=== PATIENT | female | born 1955 | race Caucasian/White ===

== ENCOUNTER 2022-05-14 15:00 | Outpatient (RCR) | payer MEDICARE, OTHER, SELFPAY | END 2022-05-14 15:05 | disposition home or self-care (01) | LOC: PT 15:00 | PROVIDERS: PCP Orthopaedic Surgery; Visit Provider Orthopaedic Surgery | DX: M54.50 Low back pain, unspecified (principal) | CPT/HCPCS: 97010; 97014; 97035; 97110; 97163; 97530; G0283 ==

== ENCOUNTER → 2022-05-29 12:49 | Outpatient (POV) | payer MEDICARE, OTHER, SELFPAY ==
[2022-05-29 13:07] VITALS: BP 140/83; PULSE 82; RESP 18; O2SAT 98; BMI 42.5
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
== END ==
PROVIDERS: Visit Provider Nurse Practitioner Family
DX: M51.36 Other intervertebral disc degeneration, lumbar region (principal); M47.816 Spondylosis without myelopathy or radiculopathy, lumbar region; Z98.1 Arthrodesis status
CPT/HCPCS: 99202; G0463

== ENCOUNTER 2022-06-10 13:28 | Day surgery (SDC) | payer MEDICARE, OTHER, SELFPAY ==
[2022-06-10 13:50] VITALS: BP 120/62; PULSE 73; RESP 18; TEMP 36.4; O2SAT 97; BMI 45.3
[2022-06-10 13:57] VITALS: BP 150/85; PULSE 81; RESP 18; O2SAT 97
[2022-06-10 13:59] VITALS: BP 150/85; PULSE 81; RESP 18; O2SAT 98
[2022-06-10 14:02] VITALS: BP 136/73; PULSE 66; RESP 18; O2SAT 97
--- NOTE | 2022-06-10 14:10 | EXP.PAIN.PRO ---
Procedure Date: 06/10/22 Time: 13:50 Anesthesiologist:: Deion Quinn CRNA Complications:: None Pre-procedure Diagnosis:: Degenerative disc disease lumbar spine multilevels. Lumbar radiculopathy. Lumbar postlaminectomy syndrome. Lumbar spondylosis. Multilevel lumbar facet arthropathy. Post-procedure Diagnosis:: Same. Indications for Procedure:: This patient is a pleasant 67-year-old female that presents our clinic today for bilateral L4-5, L5-S1 medial branch block/facet blocks. However, discussing with the patient regarding her pain pattern she only has pain on the right lumbar area. No pain on the left. She states her pain goes up her spine into the thoracic area on the right side. However, pain begins in the lumbar area. We will proceed with L3-4, L4-5 and L5-S1 medial range blocks/facet block due to the high lumbar right-sided pain. Procedure Details:: Details of the procedure were explained to the patient. The patient taken to procedure room placed in the prone position. The over the lumbar spine was cleansed using chlorhexidine cleansing solution. Using fluoroscopy guidance a 6 inch 22-gauge needle was used to access the right L3-4, L4-5 and L5-S1 facet joint. 1 cc of 1% lidocaine +10 mg of Depo-Medrol was injected at each level. Patient tolerated procedure without difficulty. There are no complications. Plan and Disposition:: I gave the patient's strict instructions regarding the 60 to 90-minute window of local anesthesia in the lumbar spine. I instructed the patient to pay close attention to how her pain is over the next 60 to 90 minutes. Also described the use of steroid in the same injection. This could give her some extended relief. However, at this time we just do not know. Patient voices understanding. She will follow-up in the clinic.
== END 2022-06-10 14:02 | disposition home or self-care (01) ==
LOC: SC.PAINP 13:29
PROVIDERS: PCP Family Medicine; Visit Provider Nurse Anesthetist, Certified Registered
DX: M51.16 Intervertebral disc disorders with radiculopathy, lumbar region (principal); M96.1 Postlaminectomy syndrome, not elsewhere classified; M47.896 Other spondylosis, lumbar region
CPT/HCPCS: 64493; 64494; 64495; J1040

== ENCOUNTER → 2022-06-17 10:07 | Outpatient (POV) | payer MEDICARE, OTHER, SELFPAY ==
[2022-06-17 10:50] VITALS: BP 166/83; PULSE 75; RESP 20; TEMP 36.2; O2SAT 96; BMI 38.7
--- NOTE | 2022-06-17 11:09 | A.OFFVIS_ITS ---
[facility] Pain Management SOAP Note Subjective:: This patient is a pleasant 67-year-old female that comes our clinic today for follow-up visit regarding chronic right thoracolumbar pain she describes as constant, dull, sharp, stabbing at times. Patient is status post lumbar fusion several years ago. Patient was given right side L3-4, L4-5 and L5-S1 medial branch block 1 week ago. She reports no relief. Patient describes the pain located at the thoracolumbar junction. Pain is only on the right. Patient does wrap around to the right side to some degree at times. I reviewed patient's thoracic MRI. Patient does have T11-12 disc bulge. Also facet arthropathy at the same level. I discussed thoracic epidural steroid injection of the T11-12 area. She wishes to proceed. Objective:: Patient is awake alert [place] x3. In no acute distress. Flexion-extension cervical lumbar spine normal. Deep tendon reflexes upper lower extremities normal. Motor strength upper and lower extremities normal. There is no gross sensory deficit. Gait is normal. Assessment:: Degenerative disc disease lumbar spine. Lumbar postlaminectomy syndrome. Disc bulge T11-12. Thoracic back pain. Thoracic radicular symptoms on the right. Thoracic facet arthropathy. Plan:: We will plan T11-12 epidural steroid injection. I discussed in detail with the patient regarding this injection. Answered her questions. She wishes to proceed. [facility] Disclaimer: The information contained in this section may have been updated after the patient was seen, as this information can be updated by other users. Medical History Anemia Depression HTN (hypertension) Hypothyroidism Surgical History H/O: hysterectomy Hx of total knee arthroplasty Previous back surgery Family History Other Cancer Diabetes Heart disease Hypertension Osteoporosis Rheumatoid arthritis Stroke Social History Smoking Status: Never smoker alcohol intake: current substance use type: denies use current occupational status: retired Travel in the last 8 weeks: None household members: family housing: house
== END ==
PROVIDERS: PCP Family Medicine; Visit Provider Nurse Anesthetist, Certified Registered
DX: M51.36 Other intervertebral disc degeneration, lumbar region (principal); M96.1 Postlaminectomy syndrome, not elsewhere classified; M51.14 Intervertebral disc disorders with radiculopathy, thoracic region
CPT/HCPCS: 99212; G0463

== ENCOUNTER 2022-06-24 09:25 | Day surgery (SDC) | payer MEDICARE, OTHER, SELFPAY ==
[2022-06-24 09:58] VITALS: BP 106/55; PULSE 53; RESP 18; TEMP 36.4; O2SAT 97; BMI 38.7
[2022-06-24 10:20] VITALS: BP 108/55; PULSE 60; RESP 18; O2SAT 97
[2022-06-24 10:21] VITALS: BP 108/55; PULSE 60; RESP 18; O2SAT 97
[2022-06-24 10:23] VITALS: BP 109/49; PULSE 54; RESP 18; O2SAT 97
--- NOTE | 2022-06-24 10:24 | EXP.PAIN.PRO ---
Procedure Date: 06/24/22 Time: 10:15 Anesthesiologist:: Deion Quinn CRNA Complications:: None Pre-procedure Diagnosis:: Degenerative disc thoracic spine. Disc bulge T11-12. Thoracic radiculopathy. Post-procedure Diagnosis:: Same. Indications for Procedure:: Very pleasant 67-year-old female that comes our clinic today for an initial thoracic T11-12 epidural steroid injection. Patient complains of low thoracic back pain as well as some degree of thoracic radiculopathy. She rates her pain 8/10. Procedure Details:: Procedure:Thoracic epidural steroid injection under fluoroscopy Informed consent was obtained and the risks and benefits of the procedure were explained to the patient. The patient was taken to the procedure room and noninvasive monitors placed, including noninvasive blood pressure cuff and pulse oximeter. The back was viewed using C-Arm fluoroscopy and prepped using Betadine as a cleansing solution and the T11-12 to interspace was palpated. Skin and subcutaneous tissues were anesthetized using lidocaine 1.5% and a 25-gauge needle. After this, an 18-gauge Touhy epidural needle was placed into the T11-12 interspace and advanced using fluoroscopic guidance and loss of resistance to air until the epidural space was encountered. After confirmation of needle placement in the epidural space, with dye, a solution containing lidocaine 1.5%, 4 mL and Depo-Medrol 80 mg were incrementally injected into the thoracic epidural space. The patient tolerated the procedure well with no complications. The patient was observed in the Pain Clinic and then discharged home neurologically intact. Plan and Disposition:: Patient was discharged without incident.
== END 2022-06-24 10:23 | disposition home or self-care (01) ==
PROVIDERS: PCP Family Medicine; Visit Provider Nurse Anesthetist, Certified Registered
DX: M51.14 Intervertebral disc disorders with radiculopathy, thoracic region (principal)
CPT/HCPCS: 62321; J1040

== ENCOUNTER 2022-07-18 15:35 | Emergency (ER) | payer MEDICARE, OTHER, SELFPAY ==
[2022-07-18 16:10] VITALS: BP 158/94; PULSE 94; RESP 16; TEMP 37.3; O2SAT 96; BMI 38.7
--- NOTE | 2022-07-18 16:28 | EXP.UTC ---
Discharge Plan Disposition Patient Disposition: Home, Self-Care Condition: Good Prescriptions Prescriptions: New prednisone [prednisone] 20 mg tablet 20 mg PO BID 5 Days Qty: 10 0RF azithromycin [Zithromax Z-Adal] 250 mg tablet See Rx Instructions .ROUTE .COMPLEX Qty: 6 0RF Rx Instructions: For 250 mg dose pack: take 500 mg today (day 1), then 250 mg for 4 days (days 2-5) benzonatate 200 mg capsule 200 mg PO TID PRN (Reason: cough) Qty: 30 0RF No Action lisinopril 20 mg tablet 20 mg PO DAILY 30 Days Qty: 0 levothyroxine 125 mcg capsule 125 mcg PO DAILY gabapentin 300 mg capsule 300 mg PO BID tizanidine 6 mg capsule 6 mg PO QHS PRN (Reason: MUSCLES) Referrals Follow up/Referrals: Justina Dupree MD [Primary Care Provider] - See instructions Clinical Impressions Clinical Impression: Sinusitis Instructions Patient Instructions: DI for Sinusitis Discharge ED Provider: Daisy Mary [facility] HPI General Stated complaint: Cough congestion Mode of Arrival: Ambulatory Limitations: No Limitations Time Seen by Provider: 07/18/22 16:29 Description of Symptoms (Recalled from Triage Doc. by RN): pt comes in with c/o cough and sore throat. since thursday HE Symptoms (Recalled from RN notes): Yes Resp Symptoms (Recalled from RN notes): Yes Skin Symptoms (Recalled from RN notes): No MS Symptoms (Recalled from RN notes): No Functional Status (Recalled from RN notes): n/a History of Present Illness Provider Complaint: Cough, congestion, sinus drainage X 5 days. No fever. Cough is productive. Onset (ago): day(s) (5) Location: chest Relieving factors: none Exacerbating factors: none Associated symptoms: cough Treatments prior to arrival: none Related Data Home Medications Medication Instructions Recorded Confirmed gabapentin 300 mg capsule 300 mg PO BID Pain 06/29/18 06/24/22 levothyroxine 125 mcg capsule 125 mcg PO DAILY THYROID 06/29/18 06/24/22 lisinopril 20 mg tablet 20 mg PO DAILY BLOOD PRESSURE 30 06/29/18 06/24/22 days #0 tabs tizanidine 6 mg capsule 6 mg PO QHS PRN MUSCLES 06/29/18 06/24/22 Previous Rx's Medication Instructions Recorded azithromycin 250 mg tablet See Rx Instructions PO .COMPLEX #6 07/18/22 (Zithromax Z-Adal) tabs benzonatate 200 mg capsule 200 mg PO TID PRN cough #30 caps 07/18/22 prednisone 20 mg tablet 20 mg PO BID 5 days #10 tabs 07/18/22 Allergies Allergy/AdvReac Type Severity Reaction Status Date / Time IRON Allergy Unknown NA-NAUSEA/V Uncoded 06/29/18 15:44 OMITING Worker's Comp Is this a Worker's Comp case?: No PFSH PFS Disclaimer: The information contained in this section may have been updated after the patient was seen, as this information can be updated by other users. Medical History (Updated 07/18/22 @ 16:35 by MADISON Bustamante) Anemia Depression HTN (hypertension) Hypothyroidism Surgical History H/O: hysterectomy Hx of total knee arthroplasty Previous back surgery Family History Rheumatoid arthritis Diabetes Osteoporosis Heart disease Cancer Hypertension Stroke Social History Smoking Status: Never smoker alcohol intake: current substance use type: denies use current occupational status: other Travel in the last 8 weeks: None household members: family housing: house ROS Obtained: Yes All systems reviewed & no additional complaints except as documented Constitutional Constitutional: Reports chills, Reports headache(s) and Reports malaise ENT Ears, Nose, Mouth, and Throat: Reports headache(s) Respiratory Respiratory: Reports cough Neurologic Neurologic: Reports headache(s) Physical Exam General General appearance: alert and in no apparent distress Head Head exam
[2022-07-18 16:41] VITALS: BP 158/94; PULSE 94; RESP 16; TEMP 37.3
== END 2022-07-18 16:41 | disposition home or self-care (01) ==
LOC: UTC 15:49 → ER 16:13 → UTC 16:13
PROVIDERS: Emergency Provider Physician Assistant; PCP Family Medicine
DX: J01.90 Acute sinusitis, unspecified (principal); I10 Essential (primary) hypertension; E03.9 Hypothyroidism, unspecified
CPT/HCPCS: 99212; 99214; G0463

== ENCOUNTER 2022-10-14 16:00 | Outpatient (RCR) | payer MEDICARE, OTHER, SELFPAY | END 2022-10-14 16:05 | disposition home or self-care (01) | LOC: PT 16:00 | PROVIDERS: PCP Family Medicine; Visit Provider Internal Medicine Cardiovascular Disease | DX: M50.30 Other cervical disc degeneration, unspecified cervical region (principal) | CPT/HCPCS: 97010; 97014; 97035; 97110; 97140; 97163; 97164; G0283 ==

== ENCOUNTER 2023-04-24 11:00 | Outpatient (RCR) | payer MEDICARE, OTHER, SELFPAY | END 2023-04-24 12:10 | disposition home or self-care (01) | LOC: OT 11:00 | PROVIDERS: PCP Family Medicine; Visit Provider Orthopaedic Surgery Sports Medicine | DX: M75.51 Bursitis of right shoulder (principal); M75.21 Bicipital tendinitis, right shoulder; S46.011A Strain of muscle(s) and tendon(s) of the rotator cuff of right shoulder, initial encounter; S43.431A Superior glenoid labrum lesion of right shoulder, initial encounter | CPT/HCPCS: 97010; 97014; 97035; 97110; 97140; 97164; 97165; 97530; 97535; G0283 ==

== ENCOUNTER 2024-03-24 15:00 | Outpatient (RCR) | payer MEDICARE, SELFPAY | END 2024-03-24 23:59 | disposition home or self-care (01) | LOC: OT 15:00 | PROVIDERS: Visit Provider Orthopaedic Surgery | DX: M25.511 Pain in right shoulder (principal); Z96.611 Presence of right artificial shoulder joint | CPT/HCPCS: 97014; 97035; 97110; 97140; 97164; 97165; 97168; 97530; G0283 ==

== ENCOUNTER 2024-03-29 14:54 | Outpatient (RCR) | payer MEDICARE, SELFPAY | END 2024-03-29 23:59 | disposition home or self-care (01) | LOC: PT 14:54 | PROVIDERS: Visit Provider Orthopaedic Surgery | DX: M41.9 Scoliosis, unspecified (principal); M54.50 Low back pain, unspecified | CPT/HCPCS: 97163; 97530 ==

== ENCOUNTER 2024-04-28 15:00 | Outpatient (RCR) | payer MEDICARE, SELFPAY | END 2024-04-28 23:59 | disposition home or self-care (01) | LOC: OT 15:00 | PROVIDERS: Visit Provider Orthopaedic Surgery | DX: Z96.611 Presence of right artificial shoulder joint (principal) | CPT/HCPCS: 97014; 97110; 97140; 97530; G0283 ==

== ENCOUNTER 2024-04-29 15:00 | Outpatient (RCR) | payer MEDICARE, SELFPAY | END 2024-04-29 23:59 | disposition home or self-care (01) | LOC: PT 15:00 | PROVIDERS: Visit Provider Orthopaedic Surgery | DX: M41.9 Scoliosis, unspecified (principal); M54.50 Low back pain, unspecified | CPT/HCPCS: 97010; 97110; 97140; 97164; 97530 ==

== ENCOUNTER 2024-05-26 14:00 | Outpatient (RCR) | payer MEDICARE, SELFPAY | END 2024-05-26 23:59 | disposition home or self-care (01) | LOC: OT 14:00 | PROVIDERS: Visit Provider Orthopaedic Surgery | DX: Z96.611 Presence of right artificial shoulder joint (principal) | CPT/HCPCS: 97014; 97110; 97140; 97168; 97530; G0283 ==

== ENCOUNTER 2024-05-26 15:00 | Outpatient (RCR) | payer MEDICARE, SELFPAY | END 2024-05-26 23:59 | disposition home or self-care (01) | LOC: PT 15:00 | PROVIDERS: Visit Provider Orthopaedic Surgery | DX: M41.9 Scoliosis, unspecified (principal); M54.50 Low back pain, unspecified | CPT/HCPCS: 97010; 97014; 97110; 97140; G0283 ==

== ENCOUNTER 2024-06-14 14:00 | Outpatient (RCR) | payer MEDICARE, SELFPAY | END 2024-06-14 23:59 | disposition home or self-care (01) | LOC: PT 14:00 | PROVIDERS: Visit Provider Orthopaedic Surgery | DX: M41.9 Scoliosis, unspecified (principal); M54.50 Low back pain, unspecified | CPT/HCPCS: 97010; 97110; 97140; 97164; 97530 ==

== ENCOUNTER 2024-07-26 14:00 | Outpatient (RCR) | payer MEDICARE, SELFPAY | END 2024-07-26 23:59 | disposition home or self-care (01) | LOC: PT 14:00 | PROVIDERS: Visit Provider Orthopaedic Surgery | DX: M41.85 Other forms of scoliosis, thoracolumbar region (principal); M54.50 Low back pain, unspecified | CPT/HCPCS: 97010; 97110; 97140; 97164; 97530 ==

== ENCOUNTER 2024-08-04 15:00 | Outpatient (RCR) | payer MEDICARE, SELFPAY | END 2024-08-04 23:59 | disposition home or self-care (01) | LOC: PT 15:00 | PROVIDERS: Visit Provider Orthopaedic Surgery | DX: M41.85 Other forms of scoliosis, thoracolumbar region (principal) | CPT/HCPCS: 97110; 97140; 97530 ==